=== PATIENT | male | born 1960 | race Two or more races ===

== ENCOUNTER 2021-01-06 10:48 | Emergency (ER) | payer SELFPAY ==
[2021-01-06 12:04] LABS: Basophils # (auto) 0.1 10 ^3/uL (0-0.2); Basophils % (auto) 1.4 % (0.0-2.0); Eosinophils # (auto) 0.2 10 ^3/uL (0-0.8); Eosinophils % (auto) 3.1 % (0.0-7.0); Hematocrit 43.5 % (41.0-53.0); Hemoglobin 14.8 g/dL (13.5-17.5); Lymphocytes # (auto) 1.6 10 ^3/uL (0.4-5.4); Lymphocytes % (auto) 25.6 % (10.0-50.0); Mean Corpuscular Hemoglobin 30.8 pg (28.0-32.0); Mean Corpuscular Volume 90.5 fL (80.0-100.0); Monocytes # (auto) 0.7 10 ^3/uL (0-1.3); Monocytes % (auto) 12.1 % (0.0-12.0); Neutrophils # (auto) 3.5 10 ^3/uL (1.6-8.6); Neutrophils % (auto) 57.8 % (37.0-80.0); Nucleated Red Blood Cells % 0.1 %; Red Blood Cells 4.81 10^6/uL (4.5-5.90); Red Cell Distribution Width 13.7 % (11.8-14.3); White Blood Cell 6.1 10^3/uL (4.4-10.8)
[2021-01-06 12:35] LABS: Blood Urea Nitrogen 10 mg/dL (7-18); Calcium 8.6 mg/dL (8.5-10.1); Chloride 111 mmol/L (98-107); Sodium 142 mmol/L (136-145)
[2021-01-06 12:43] LABS: Alanine Aminotransferase 51 U/L (16-61); Albumin 3.2 g/dL (3.4-5.0); Alkaline Phosphatase 98 U/L (45-117); Anion Gap 5 (5-15); Aspartate Aminotransferase 35 U/L (15-37); BUN/Creatinine Ratio 10.2; Bilirubin, Total 0.4 mg/dL (0.2-1.0); Carbon Dioxide 26 mmol/L (21-32); GFR African American 100 mL/min; GFR Non-African American 83 mL/min; Glucose 80 mg/dL (74-106); Lipase 124 U/L (73-393); Total Protein 7.5 g/dL (6.4-8.2)
[2021-01-06 14:20] VITALS: BP 114/76
== END 2021-01-06 14:35 | disposition home or self-care (01) ==
LOC: ER 10:54
DX: R10.84 Generalized abdominal pain (principal); K76.89 Other specified diseases of liver
CPT/HCPCS: 36415; 74176; 80053; 83690; 84484; 85025; 93005